=== PATIENT | male | born 1985 | race African-American/Black ===

== ENCOUNTER 2022-10-26 13:41 | Emergency (ER) | payer MEDICARE, MEDICAID ==
[~2022-10-26] VITALS: Ht 177.8 cm; Wt 104.5 kg
[2022-10-26 15:03] VITALS: BP 138/98
[2022-10-26] MEDS ORDERED: CLOZ100T68 PO (16:31)
[2022-10-26] MEDS ORDERED: CLOZ200T8 PO (16:31)
[2022-10-26] MEDS ORDERED: CLOZ50TA PO (16:31)
== END 2022-10-26 16:40 | disposition home or self-care (01) ==
LOC: ER 13:43
DX: F25.9 Schizoaffective disorder, unspecified (principal); Z76.0 Encounter for issue of repeat prescription
CPT/HCPCS: 99281